=== PATIENT | male | born 1990 | race Caucasian/White ===

== ENCOUNTER 2021-08-24 15:30 | Emergency (ER) | payer MEDICAID ==
[~2021-08-24] VITALS: Ht 175.3 cm; Wt 115.7 kg
[2021-08-24 15:46] VITALS: BP_SYST 153
--- NOTE | 2021-08-24 15:46 | NUR ---
Note undone in EDM - 08/24/21 at 1731 by [email or web address] PT [facility] FOR SUDDEN ONSET OF SOB, ON VIA NC @100%. PT DENIES ANY CURRENT CP OR SOB AT THIS TIME, SPEAKING IN FULL CLEAR SENTENCES, RESP EVEN AND UNLABORED. DOUBLE LUMEN LOCKWOOD TO RT CHEST WALL. PT DIABETIC WITH RT [facility] IN 2015. STATES HE HAD A STROKE APPROX A MOTH AGO AND IS STAYING AT A REHAB CENTER FOR THIS, NO GROSS RESIDUAL NOTED. WHILE REPOSITIONING HIM , HE REPORTED BACK PAIN, UPON ASSESSMENT, SACRAL WOUND STAGE 1 NOTED, AREA CLEANED, HAD SMEAR OF STOOL AROUND DRESSING. AREA CLEANED AND NEW OPTIFOAM APPLIED, REPOSITIONED FOR COMFORT. PT AAOX3, ABLE TO VERBALIZE NEEDS, INCONTINENT, BUT ABLE TO INFORM STAFF. PMH: CKD STAGE IV, SEVERE PULMONARY ARTERY HYPERTENSION, PVD,CHRONIC HYPERCAPNIC RESPIRATORY FAILURE. SAFETY MEASURES IN PLACE, WILL CONT TO MONITOR.
--- NOTE | 2021-08-24 15:50 | NUR ---
Patient triaged and placed in waiting room. VSS and patient appears in no acute distress at this time. Accompanied by self, awaiting available bed, and MD notified of need for MSE.
--- NOTE | 2021-08-24 16:00 | NUR ---
Patient to ER bed 3 to gown for evaluation. Side rails up. Report given to Jerilyn PICHARDO.
--- NOTE | 2021-08-24 16:13 | NUR ---
PT COMES TO ER WITH C/O LEFT FOOT BLISTER THAT OPENED THIS MORNING THAT ACTUALLY CAUSED RELIEF BUT HAS OPENED AND NOW "SKIN OUT". PT DENIES DIABETES OR HTN. ADMITTED HE IS A RECOVERING DRUG ADDICT FOR 30 DAYS,DOES NOT WANT ANY MEDICATIONS. STATES WHILE ON METH, HE WOULD WALK FOR MILES ON MILES AND HAS BAD FOOT PROBLEMS. SHOWD MUTIPLE DRY BLISTERS TO KEHINDE FEET, DRY SCALY FEET NOTED. PT DENIES ANY FEVERS/CHILLS/PAIN. PEDAL PULSES PRESENT, DENIED ANY NUMBNESS/TINGLING. OTHERWISE HEALTHY. WAIITNGFOR ER MD EXAM.
--- NOTE | 2021-08-24 16:51 | NUR ---
DR [place] IN ROOM FOR EXAM.
[2021-08-24] MEDS ORDERED: LIDOCAINE 2%, 20 ML MDV INJ ONE (17:00)
[2021-08-24] MEDS ORDERED: CLIN300C12 PO (17:33)
--- NOTE | 2021-08-24 19:06 | NUR ---
REPORT GIVEN TO JEREMY PICHARDO, UPDATED ON STATUS.
[2021-08-24] MEDS ORDERED: SULF1TAB48 PO (19:47)
[2021-08-24] MEDS ORDERED: CIPR500T5 PO (19:47)
[2021-08-24] MEDS ORDERED: CIPROFLOXACIN HCL 500 MG TABLET PO ONE (20:00)
[2021-08-24] MEDS ORDERED: SULFAMETHOXAZOLE/TRIMETHOPR DS 1 TABLET PO ONE (20:00)
--- NOTE | 2021-08-24 20:00 | NUR ---
pt left foot was wrapped with wet gauze and wrapped with kerlex. done by latanya, emt
--- NOTE | 2021-08-24 20:17 | NUR ---
Patient given written and verbal discharge instructions and verbalizes understanding. ER MD discussed with patient the results and treatment provided. Patient in stable condition. ID arm band removed. Rx of given. Patient educated on pain management and to follow up with PMD. Pain Scale 3/10. Opportunity for questions provided and answered. Medication side effect fact sheet provided.
[2021-08-24 20:20] VITALS: BP_SYST 142
--- NOTE | 2021-08-27 18:25 | NUR ---
Positive wound culture, MRSA, gram positive cocci. Pt was sent home with a prescription for Cipro and Bactrim, per Dr. Ho, pt is covered with antibiotics.
== END 2021-08-24 20:17 | disposition home or self-care (01) ==
LOC: SED 15:30
DX: L02.612 Cutaneous abscess of left foot (principal); F15.988 Other stimulant use, unspecified with other stimulant-induced disorder; Z88.0 Allergy status to penicillin
CPT/HCPCS: 10060; 82962; 87070; 87075; 87186; 99283; J2001